=== PATIENT | male | born 1975 | race American Indian/Alaskan Native ===

== ENCOUNTER 2018-05-14 21:36 | Emergency (ER) | payer MEDICAID, OTHER ==
[2018-05-14 21:50] VITALS: RESP 20
--- NOTE | 2018-05-14 22:32 | C.PDOC ---
History Of Present Illness 43 year old male with a Hx of mild intermittent asthma presents to the ER with a complaint of nasal congestion and productive cough for the past 2 days. Patient states he was sick in March and April with cough and congestion which resolved, he needed a nebulizer at the time. Patient notes he now has recurring nasal congestion, post nasal drip, and a persistent cough with green sputum, and SOB. He was seen by his PMD, Dr. Valente Escalona, who [facility], however, symptoms persist. Patient has not used a nebulizer for his symptoms and has not been to work since onset of symptoms. Denies fever or chills. Time Seen by Provider: 05/14/18 22:08 Chief Complaint (Nursing): Cough, Cold, Congestion History Per: Patient History/Exam Limitations: no limitations Onset/Duration Of Symptoms: Days Current Symptoms Are (Timing): Still Present Location Of Pain: None Sick Contacts (Context): None Associated Symptoms: Cough, Sputum, Nasal Congestion, Other (SOB, post nasal drip). denies: Fever, Chills Ear Symptoms: Bilateral: None Recent travel outside of the [place]: No Past Medical History Reviewed: Historical Data, Nursing Documentation, Vital Signs Vital Signs: Last Vital Signs Temp 98.0 F 05/14/18 22:56 Pulse 92 H 05/14/18 22:56 Resp 20 05/14/18 22:56 BP 134/78 05/14/18 22:56 Pulse Ox 97 05/14/18 22:56 - Medical History PMH: Asthma Surgical History: No Surg Hx Family History: States: No Known Family Hx - Social History Hx Alcohol Use: Yes Hx Substance Use: No - Immunization History Hx Tetanus Toxoid Vaccination: No Hx Influenza Vaccination: No Hx Pneumococcal Vaccination: No Review Of Systems Constitutional: Negative for: Fever, Chills ENT: Positive for: Nose Congestion, Other (Post nasal drip) Cardiovascular: Negative for: Chest Pain, Palpitations Respiratory: Positive for: Cough, Shortness of Breath, Sputum Gastrointestinal: Negative for: Nausea, Vomiting Physical Exam - Physical Exam Appears: Non-toxic Skin: Normal Color, Warm, Dry Head: Atraumatic, Normacephalic Eye(s): bilateral: Normal Inspection Ear(s): Bilateral: Normal Nose: Other (Congestion) Oral Mucosa: Moist Throat: Normal, No Erythema, No Exudate Neck: Normal, Supple Lymphatic: No Adenopathy Chest: Symmetrical, No Tenderness Cardiovascular: Rhythm Regular Respiratory: Normal Breath Sounds, No Rales, No Rhonchi, No Wheezing, Other ( Persistent coughing) Gastrointestinal/Abdominal: Soft, No Tenderness Back: No CVA Tenderness Neurological/Psych: Oriented x3, Normal Speech ED Course And Treatment O2 Sat by Pulse Oximetry: 98 (Room air) Pulse Ox Interpretation: Normal - Radiology CXR: Interpreted by Me CXR Interpretation: Yes: No Acute Disease (large hiatal hernia present) Progress Note: CXR ordered. Disposition Counseled Patient/Family Regarding: Studies Performed, Diagnosis, Need For Followup, Rx Given - Disposition Referrals: [facility] [Outside] Disposition: HOME/ ROUTINE Disposition Time: 22:29 Condition: STABLE Prescriptions: Albuterol HFA [Ventolin HFA 90 mcg/actuation (8 g)] 1 puff IH QID PRN #1 inhaler PRN Reason: Wheezing Azithromycin [Zithromax] 250 mg PO DAILY #6 tab Promethazine/Codeine [Phenergan/Codeine Oral Syrup] 5 ml PO TID PRN #60 udc PRN Reason: Cough Instructions: Cough in Adults, Upper Respiratory Infection (ED) Forms: [employer] ([place]) - Clinical Impression Clinical Impression: Upper respiratory infection, Cough - Scribe Statement The provider has reviewed the documentation as recorded by the Fidelinaibjosephine Eubanks All medical record entries made by the Scribe were at my direction and personally dictated by me. I have reviewed the chart and agree that the record accurately reflects my personal performance of the history, physical exam, medical decision making, and the department course for this patient. I have also personally directed, reviewed, and agree with the discharge instructions and disposition.
[2018-05-14 22:57] VITALS: BP 134/78; PULSE 92; TEMP 98
[2018-05-14 23:56] VITALS: O2SAT 98
--- NOTE | 2018-05-15 09:46 | RAD ---
Date of service: 05/14/2018 HISTORY: cough COMPARISON: No prior. TECHNIQUE: Chest PA and lateral FINDINGS: LUNGS: No active pulmonary disease. PLEURA: No significant pleural effusion identified. No pneumothorax apparent. CARDIOVASCULAR: Normal. OSSEOUS STRUCTURES: No significant abnormalities. VISUALIZED UPPER ABDOMEN: Normal. OTHER FINDINGS: Large air-filled hiatal hernia suggested IMPRESSION: Large air-filled hiatal hernia suggested . Otherwise unremarkable
== END 2018-05-14 22:56 | disposition home or self-care (01) ==
LOC: C.ER 21:36
DX: J06.9 Acute upper respiratory infection, unspecified (principal); R05 Cough